=== PATIENT | female | born 1955 | race Caucasian/White ===

== ENCOUNTER 2021-09-19 15:45 | Emergency (ER) | payer BC, MEDICARE ==
[~2021-09-19] VITALS: Ht 172.7 cm; Wt 106.8 kg
[2021-09-19 16:09] VITALS: TEMP 98.4
[2021-09-19 17:12] LABS: BASO % 0.4 % (0.0-2.0); EOS # 0.2 K/mm3 (0.0-0.7); EOS % 3.4 % (0.0-4.0); GRAN # 3.6 K/mm3 (1.4-6.5); HEMATOCRIT 37.9 % (37.0-47.0); HEMOGLOBIN 12.7 g/dl (12.5-16.0); LYMPH # 1.2 K/mm3 (1.2-3.4); LYMPH % 21.9 % (20.0-51.0); MEAN CELL VOLUME 88 fl (80.0-100.0); MEAN CORPUSCULAR HEMOGLOBIN 29 pg (27-31); MEAN CORPUSCULAR HGB CONC 34 g/dl (33.0-37.0); MEAN PLATELET VOLUME 9.9 fl (7.4-10.4); MONO # 0.4 K/mm3 (0.1-0.6); MONO % 6.7 % (1.7-9.3); PLATELET COUNT 249 K/mm3 (130-400); RED BLOOD COUNT 4.33 M/mm3 (4.10-5.30); REDCELL DISTRIBUTION WIDTH-CV 13.1 % (11.5-14.5)
[2021-09-19 17:32] LABS: ALANINE AMINOTRANSFERASE 15 U/L (0-55); ALBUMIN 4.3 gm/dL (3.4-4.8); ALKALINE PHOSPHATASE 87 U/L (40-150); ANION GAP 10 mmol/L (7-16); AST,SGOT 15 U/L (5-34); BILIRUBIN,TOTAL 0.6 mg/dL (0.2-1.2); BLOOD UREA NITROGEN 11 mg/dL (10-20); CALCIUM 9.2 mg/dL (8.4-10.2); CARBON DIOXIDE 23 mmol/L (23-31); CHLORIDE 108 mmol/L (98-107); CREATININE, serum 1.06 mg/dL (0.57-1.11); GLUCOSE 107 mg/dL (70-99); POTASSIUM 3.6 mmol/L (3.5-4.5); SODIUM 141 mmol/L (136-145); TOTAL PROTEIN 7.3 gm/dL (6.2-8.1)
[2021-09-19 18:01] LABS: TROPONIN-I < 0.010 ng/mL (0.00-0.033)
[2021-09-19 21:31] VITALS: BP 139/78; PULSE 72
== END 2021-09-19 21:31 | disposition home or self-care (01) ==
LOC: COL.ER 15:45
PROVIDERS: Emergency Medicine
DX: R07.89 Other chest pain (principal); M54.2 Cervicalgia; G89.29 Other chronic pain; R51.9 Headache, unspecified; R19.7 Diarrhea, unspecified; Z20.822 Contact with and (suspected) exposure to COVID-19; Z28.311 Partially vaccinated for COVID-19; Z82.49 Family history of ischemic heart disease and other diseases of the circulatory system
CPT/HCPCS: J1200; J2765; J7030

== ENCOUNTER 2021-10-15 19:11 | Emergency (ER) | payer BC, MEDICARE ==
[~2021-10-15] VITALS: Ht 172.7 cm; Wt 109.1 kg
[2021-10-15 19:14] VITALS: BP 161/85; TEMP 97.6
[2021-10-15 21:05] VITALS: PULSE 87
== END 2021-10-15 21:10 | disposition home or self-care (01) ==
LOC: COL.ER 19:11
DX: M54.50 Low back pain, unspecified (principal); R51.9 Headache, unspecified; Z98.890 Other specified postprocedural states; Z28.311 Partially vaccinated for COVID-19; W19.XXXA Unspecified fall, initial encounter
CPT/HCPCS: J2270

== ENCOUNTER 2022-02-03 22:41 | Emergency (ER) | payer BC ==
[~2022-02-03] VITALS: Ht 172.7 cm; Wt 113.6 kg
[2022-02-03 23:08] LABS: BASO % 0.2 % (0.0-2.0); EOS # 0.1 K/mm3 (0.0-0.7); EOS % 1.1 % (0.0-4.0); GRAN # 6.8 K/mm3 (1.4-6.5); HEMOGLOBIN 12.5 g/dl (12.5-16.0); LYMPH # 1.4 K/mm3 (1.2-3.4); LYMPH % 15.8 % (20.0-51.0); MEAN CELL VOLUME 88 fl (80.0-100.0); MEAN CORPUSCULAR HEMOGLOBIN 31 pg (27-31); MEAN CORPUSCULAR HGB CONC 35 g/dl (33.0-37.0); MONO # 0.6 K/mm3 (0.1-0.6); MONO % 6.6 % (1.7-9.3); PLATELET COUNT 200 K/mm3 (130-400); RED BLOOD COUNT 4.08 M/mm3 (4.10-5.30); REDCELL DISTRIBUTION WIDTH-CV 13.3 % (11.5-14.5)
[2022-02-03 23:28] LABS: ALBUMIN 3.5 gm/dL (3.4-4.8); BILIRUBIN,TOTAL 0.6 mg/dL (0.2-1.2); CALCIUM 8.8 mg/dL (8.4-10.2); POTASSIUM 3.5 mmol/L (3.5-4.5); TOTAL PROTEIN 6.7 gm/dL (6.2-8.1)
[2022-02-03 23:33] LABS: TROPONIN-I 0.017 ng/mL (0.00-0.033)
[2022-02-04 00:25] VITALS: TEMP 99.5
[2022-02-04 00:28] LABS: COLLECTION METHOD CLEAN CATCH
[2022-02-04 00:48] LABS: MUCOUS Present (NOT PRESENT); URINE BACTERIA Occasional /hpf (NONE SEEN)
[2022-02-04 00:49] LABS: URINE APPEARANCE Clear (CLEAR/HAZY); URINE BLOOD Negative (NEGATIVE); URINE COLOR Yellow (YELLOW); URINE GLUCOSE Negative (NEGATIVE); URINE KETONE Negative (NEGATIVE); URINE NITRATE Negative (NEGATIVE); URINE PROTEIN(semi-quant) Negative (NEGATIVE); URINE UROBILINOGEN 0.2 E.U/dL (0.2-1.0)
[2022-02-04] MEDS ORDERED: OMNICEF 300MG300 MG PO (01:15)
[2022-02-04 01:44] VITALS: BP 115/61; PULSE 97
== END 2022-02-04 02:23 | disposition home or self-care (01) ==
LOC: COL.ER 22:41
PROVIDERS: Nurse Practitioner Primary Care
DX: N39.0 Urinary tract infection, site not specified (principal); Z28.311 Partially vaccinated for COVID-19; Z88.0 Allergy status to penicillin; Z20.822 Contact with and (suspected) exposure to COVID-19
CPT/HCPCS: J0696; J7030

== ENCOUNTER 2022-05-07 16:38 | Inpatient (IN) | payer BC ==
[~2022-05-07] VITALS: Ht 172.7 cm; Wt 111.4 kg
[~2022-05-07 16:38] MED LIST: CEFTIN500 MG PO; NORCO 325 MG-51 TAB PO; OMNICEF 300MG300 MG PO; ZITHROMAX Z PA250 MG PO
[2022-05-07 17:22] LABS: BASO % 0.1 % (0.0-2.0); EOS # 0.1 K/mm3 (0.0-0.7); EOS % 1.7 % (0.0-4.0); GRAN # 6.3 K/mm3 (1.4-6.5); GRAN % 75.9 % (42.2-75.2); HEMOGLOBIN 11.9 g/dl (12.5-16.0); LYMPH # 1.2 K/mm3 (1.2-3.4); LYMPH % 14.5 % (20.0-51.0); MEAN CELL VOLUME 88 fl (80.0-100.0); MEAN CORPUSCULAR HEMOGLOBIN 30 pg (27-31); MEAN CORPUSCULAR HGB CONC 35 g/dl (33.0-37.0); MEAN PLATELET VOLUME 10.4 fl (7.4-10.4); MONO # 0.6 K/mm3 (0.1-0.6); MONO % 7.4 % (1.7-9.3); PLATELET COUNT 236 K/mm3 (130-400); RED BLOOD COUNT 3.93 M/mm3 (4.10-5.30); REDCELL DISTRIBUTION WIDTH-CV 13.3 % (11.5-14.5)
[2022-05-07 17:24] LABS: HEMATOCRIT 34.5 % (37.0-47.0)
[2022-05-07 17:29] LABS: ALANINE AMINOTRANSFERASE 22 U/L (0-55); ALBUMIN 3.8 gm/dL (3.4-4.8); ALKALINE PHOSPHATASE 76 U/L (40-150); ANION GAP 11 mmol/L (7-16); AST,SGOT 27 U/L (5-34); BILIRUBIN,TOTAL 0.8 mg/dL (0.2-1.2); BLOOD UREA NITROGEN 11 mg/dL (10-20); CALCIUM 9.5 mg/dL (8.4-10.2); CARBON DIOXIDE 26 mmol/L (23-31); CHLORIDE 103 mmol/L (98-107); CREATINE KINASE 408 U/L (29-168); CREATININE, serum 0.82 mg/dL (0.57-1.11); GLUCOSE 114 mg/dL (70-99); POTASSIUM 3.6 mmol/L (3.5-4.5); SODIUM 140 mmol/L (136-145); TOTAL PROTEIN 6.9 gm/dL (6.2-8.1)
[2022-05-07 17:30] LABS: ALCOHOL(ethanol),MEDICAL < 10 mg/dL (0-10)
[2022-05-07 17:42] LABS: TROPONIN-I < 0.010 ng/mL (0.00-0.033)
[2022-05-07] MEDS ORDERED: XANAX 0.5MG0.5 MG PO (22:14)
[2022-05-07] MEDS ORDERED: AMBIEN 10MG10 MG PO (22:14)
[2022-05-07] MEDS ORDERED: TRIAMC 0.1 454 TOP (22:15)
[2022-05-07] MEDS ORDERED: HYGROTON 2525 MG/TAB PO (22:15)
[2022-05-07] MEDS ORDERED: PROTONIX 40MG T40 MG PO (22:15)
[2022-05-07] MEDS ORDERED: BUPRENORPHINE HY2 MG SL (22:15)
[2022-05-07] MEDS ORDERED: BRINTELLIX5 PO (22:15)
[2022-05-07] MEDS ORDERED: LASIX 20MG TABL20 MG PO (22:15)
[2022-05-07 23:05] VITALS: BP 120/61; PULSE 82; TEMP 97.8
--- NOTE | 2022-05-07 23:05 | NUR ---
pt admitted to room 342 per WC from ED, accompanied by son and meter/relay technician. pt able to transfer self to bed with help moving legs onto bed from staff. alert and oriented x4, speech slightly slurred, pt is drowsy, but reports pain "all over" when asked specifically where she has pain, she states chronic neck, low back, rt hip and feet, although, since the fall, her rt hip pain has increased. IV to lt hand INT, assessment and intake questions completed, med req done, notified Екатерина of pt's arrival, entering orders at this time. pt has slight discoloration to left forehead where she struck her head during the fall. neuro checks q4hrs
[2022-05-07] MEDS ORDERED: LIDODERM 5% PATC1 EA TP (23:19)
[2022-05-08] VITALS (9 sets, daily range): BP systolic 83–117; BP diastolic 44–88; PULSE 67–83; TEMP 97.4–98.3
[2022-05-08 07:27] LABS: BASO % 0.5 % (0.0-2.0); EOS # 0.3 K/mm3 (0.0-0.7); EOS % 4.5 % (0.0-4.0); GRAN # 3.4 K/mm3 (1.4-6.5); GRAN % 57.4 % (42.2-75.2); HEMOGLOBIN 10.7 g/dl (12.5-16.0); LYMPH # 1.7 K/mm3 (1.2-3.4); MEAN CELL VOLUME 89 fl (80.0-100.0); MEAN CORPUSCULAR HEMOGLOBIN 30 pg (27-31); MEAN CORPUSCULAR HGB CONC 34 g/dl (33.0-37.0); MEAN PLATELET VOLUME 10.8 fl (7.4-10.4); MONO # 0.5 K/mm3 (0.1-0.6); MONO % 8.3 % (1.7-9.3); PLATELET COUNT 192 K/mm3 (130-400); RED BLOOD COUNT 3.56 M/mm3 (4.10-5.30); REDCELL DISTRIBUTION WIDTH-CV 13.3 % (11.5-14.5)
[2022-05-08 07:38] LABS: HEMATOCRIT 31.6 % (37.0-47.0)
[2022-05-08 07:54] LABS: CALCIUM 9.1 mg/dL (8.4-10.2); CREATININE, serum 0.87 mg/dL (0.57-1.11); POTASSIUM 3.7 mmol/L (3.5-4.5)
--- NOTE | 2022-05-08 08:00 | NUR ---
Assessment complete. A&Ox3. Rating pain 8/10 to lower back/extremities. Unable to medicate due to low blood pressures. Very slurred speech and slow to respond and dosing off during assessment. Noted have a rash to right valerio area and bruising to forehead. INT to left wrist flushes without difficulty. Plan of care discussed for this shift to include meds/fluid bolus/VS/calling for questions/concerns. Verbalizes understanding. Call light in reach. Will monitor.
--- NOTE | 2022-05-08 08:07 | NUR ---
Dr Parra notified of blood pressure of 80s/50s. New orders received and initiated.
--- NOTE | 2022-05-08 09:33 | NUR ---
Blood pressure continues to be low-80/40s. Has received 250ml bolus. Dr Parra aware and another 250ml bolus initiated. Will re-assess when complete
--- NOTE | 2022-05-08 10:45 | NUR ---
SW met with pt to complete intake. Pt reports living alone in a apartment. Pt reports next of kin is her son, Justino @ [phone]. Pt is independent on all ADls and does not use any DME. PCP is Beto Burns and gets medications from [facility]. Pt reports she would like rehab. DC: Home w/fam vs Rehab SW to fax referrals
--- NOTE | 2022-05-08 12:22 | NUR ---
Channel Installer rounds: No Channel Installer visit attempted because Patient had a visitor in room.
--- NOTE | 2022-05-08 13:45 | NUR ---
Patient requesting pain meds from PCT. Blood pressure WNL. This nurse to room and patient is resting with eyes closed. Awakens with verbal stimuli. States she needs the IV pain meds. Discussed starting with oxycodone and patient states it doesnt work and she wants the IV meds. Explained per order we would be starting with oxycodone and if pain is still persistent after an hour we could advance to IV medication if blood pressure is okay. Verbalizes understanding but states several times "see you in an hour" while giggling.
--- NOTE | 2022-05-08 15:55 | NUR ---
Neuro/Ortho consults called.
--- NOTE | 2022-05-08 17:41 | NUR ---
BECKY FAXED referrals to [facility] 05/08/ @ 5:41 pm @lucas.
[2022-05-09 03:59] VITALS: BP 119/56; PULSE 70; TEMP 97.8
--- NOTE | 2022-05-09 06:15 | NUR ---
PT has been ambulating to restroom with SBA, has refused oxycodone and only wants the IV morphine q4 for pain, scheduled tylenol and motrin given unless pt sleeping. IVF infusing @75cc/hr per PIV. good po intake, potassium replacement given last evening. would like something for itching and ointment for skin rash, will pass on in report. urine specimen sent to lab chet
[2022-05-09 06:44] LABS: BASO % 0.4 % (0.0-2.0); EOS # 0.3 K/mm3 (0.0-0.7); EOS % 5.6 % (0.0-4.0); GRAN # 2.9 K/mm3 (1.4-6.5); GRAN % 54.6 % (42.2-75.2); HEMOGLOBIN 10.8 g/dl (12.5-16.0); LYMPH # 1.6 K/mm3 (1.2-3.4); LYMPH % 30.1 % (20.0-51.0); MEAN CELL VOLUME 90 fl (80.0-100.0); MEAN CORPUSCULAR HEMOGLOBIN 31 pg (27-31); MEAN CORPUSCULAR HGB CONC 34 g/dl (33.0-37.0); MEAN PLATELET VOLUME 11.2 fl (7.4-10.4); MONO # 0.5 K/mm3 (0.1-0.6); MONO % 8.9 % (1.7-9.3); PLATELET COUNT 224 K/mm3 (130-400); RED BLOOD COUNT 3.54 M/mm3 (4.10-5.30); REDCELL DISTRIBUTION WIDTH-CV 13.2 % (11.5-14.5)
[2022-05-09 06:47] LABS: HEMATOCRIT 31.9 % (37.0-47.0)
[2022-05-09 07:02] LABS: TRICYCLIC ANTIDEPRESS URINE NEGATIVE
[2022-05-09 07:04] LABS: CREATININE, serum 0.89 mg/dL (0.57-1.11); POTASSIUM 3.9 mmol/L (3.5-4.5)
[2022-05-09 07:23] VITALS: BP 103/58; PULSE 69; TEMP 98
[2022-05-09 07:58] LABS: THYROID STIMULATING HORMONE 2.469 uIU/mL (0.350-4.940)
--- NOTE | 2022-05-09 08:00 | NUR ---
PATIENT GETTING ECHO AT BEDSIDE AND IS CRYING OUT IN PAIN DUE TO V.DUPLEX. PATIENT IS HYPERSESITIVE TO ANY PRESSURE/PAIN AND HAS A LONG HX OF CHRONIC PAIN AND NARCOTIC USE. PATIENT'S UA WAS POSITIVE FOR SEVERAL OPIODS. ORIENTED BUT ALSO DROWSY. NOTED SOFT PRESSURES OF 103/58, ALL OTHER VSS. PATIENT IS VERY VOCAL AND IS ASKING FOR PAIN MEDS. GAVE PRN ROXICODONE AND PRN IV MORPHINE. PATIENT ALSO RECEIVED SCHEDULED MOTRIN AND LIDO PATCH, SEE MAR. NO C/O N/V. IV FLUIDS INFUSING VIA PUMP INTO LEFT WRIST IV. HEAD TO TOE ASSESSMENT COMPLETE. VASCULAR NURSE STILL AT BEDSIDE. CALL LIGHT IN REACH.
[2022-05-09 11:48] VITALS: BP 120/59; PULSE 50; TEMP 97.8
[2022-05-09 16:37] VITALS: BP 101/80; PULSE 72; TEMP 97.9
[2022-05-09 19:10] VITALS: BP 121/65; PULSE 71; TEMP 97.5
--- NOTE | 2022-05-09 21:59 | NUR ---
PT ASKING FOR PAIN MEDS FOR HIPS AND BACK PAIN. MORPHINE 2MG IVP AND OXYCODONE 5MG PO GIVEN WITH HS MEDS. HAS IVF TO LEFT HAND INFUSING WITHOUT PROBLEM. IS ALERT AND ORIENTED X4. HAS SMALL BRUISE TO LEFT FOREHEAD FROM FALL AT HOME. HAS RASH TO RLE SINCE ADMISSION TO HOSPITAL. VOIDING WITHOUT DIFFICULTY.
[2022-05-09 23:52] VITALS: BP 116/57; PULSE 68; TEMP 97.5
--- NOTE | 2022-05-10 01:48 | NUR ---
MEDICATED WITH SCHEDULED ES TYLENOL, ALSO PRN OXYCODONE 5MG PO AND MORPHINE 2MG IVP FOR PAIN IN BACK AND LEGS.
[2022-05-10 03:51] VITALS: BP 112/57; PULSE 67; TEMP 97.7
--- NOTE | 2022-05-10 06:06 | NUR ---
PT AWAKE, AMBULATES IN BATHROOM WITH SBA AND WALKER, GAIT STEADY. BACK TO BED. REPORTING PAIN TO HIPS/LEGS AND BACK. BILATERAL LOWER LEG SWELLING PERSISTS. MEDICATED WITH SCHEDULED AM MEDS INCLUDING MORPHINE 2MG IVP AND OXYCODONE 5MG PO.
[2022-05-10 06:32] LABS: BASO % 0.4 % (0.0-2.0); EOS # 0.2 K/mm3 (0.0-0.7); EOS % 4.2 % (0.0-4.0); GRAN # 2.6 K/mm3 (1.4-6.5); GRAN % 55.8 % (42.2-75.2); HEMOGLOBIN 10.8 g/dl (12.5-16.0); LYMPH # 1.5 K/mm3 (1.2-3.4); LYMPH % 32.2 % (20.0-51.0); MEAN CELL VOLUME 89 fl (80.0-100.0); MEAN CORPUSCULAR HEMOGLOBIN 30 pg (27-31); MEAN CORPUSCULAR HGB CONC 34 g/dl (33.0-37.0); MEAN PLATELET VOLUME 10.8 fl (7.4-10.4); MONO # 0.3 K/mm3 (0.1-0.6); MONO % 7.2 % (1.7-9.3); PLATELET COUNT 225 K/mm3 (130-400); RED BLOOD COUNT 3.58 M/mm3 (4.10-5.30); REDCELL DISTRIBUTION WIDTH-CV 13.2 % (11.5-14.5)
[2022-05-10 06:37] LABS: HEMATOCRIT 31.9 % (37.0-47.0)
[2022-05-10 06:45] LABS: CALCIUM 8.6 mg/dL (8.4-10.2); CREATININE, serum 0.91 mg/dL (0.57-1.11); POTASSIUM 3.7 mmol/L (3.5-4.5)
[2022-05-10 07:41] VITALS: BP 120/58; PULSE 71; TEMP 97.6
[2022-05-10 12:06] VITALS: BP 105/58; PULSE 70; TEMP 98.1
[2022-05-10 13:38] LABS: LYME DISEASE ANTIBODIES Negative (Negative)
--- NOTE | 2022-05-10 14:26 | NUR ---
PT worked with the patient and recommend home with family vs rehab. She walked 200 ft. The patient has [facility]. SW consulted IPR. Christy, IPR Director, reports that the patient is too functional. SW met with the patient to discuss the above and alternate options such as home with home health or outpatient PT. The patient states that she already has a referral to do outpatient PT and had planned on doing this at [facility]. She states that she is comfortable returning home and will be going to stay with her son, Justino, at the end of the month. Her son is a captain airline pilot on [email or web address]. She would like to continue with outpatient PT at [facility]. She states that her son is currently flying and she is unable to get ahold of him. He has her car. She shares that she does not have a walker and would be interested in getting one. She is agreeable with getting one from [facility]. BECKY contacted and faxed the FWW order to Luis at [facility]. Awaiting delivery of walker. BECYK contacted [facility] and scheduled the patient a PT appointment on 05/12 at 0800. BECKY informed the ammunition components inspector of the appointment. *Discharge plan: home with outpatient PT*
[2022-05-10 15:28] VITALS: BP 132/68; PULSE 77; TEMP 97.6
[2022-05-10 20:02] VITALS: BP 121/61; PULSE 85; TEMP 97.9
--- NOTE | 2022-05-10 22:45 | NUR ---
PATIENT A&0. COMPLAINTS OF 5 OF 10 PAIN. PAIN MEDS ADMINISTERED. C/O ITCHING, BENADRYL REQUESTED AND ADMINISTERED. PATIENT SHOWERED AND BED LINENS CHANGED. NO REQUESTS OR OTHER CONCERNS AT THIS TIME.
[2022-05-10 23:42] VITALS: BP 141/74; PULSE 77; TEMP 97.9
--- NOTE | 2022-05-11 00:40 | NUR ---
RECEIVED REPORT FROM RNPERCY. IV FLUIDS INFUSING WITH NO PROBLEMS.
[2022-05-11 04:10] VITALS: BP 110/56; PULSE 64; TEMP 98.6
--- NOTE | 2022-05-11 06:06 | NUR ---
REPORTS SHE CAN HEAR HERSELF "WHEEZING....WHISTLING" WITH BREATHING BUT DENIES SHORTNESS OF AIR, OXYGEN SAT ON ROOM AIR AT 98 PERCENT. AUSCULTATED ALL LUNG FIELD ANT AND POST CLEAR THROUGH OUT. DENIES FEELING SPUTUM IN THROAT. REPORTS SORE THROAT DUE TO DRY FEELING THROAT THAT RESOLVED AFTER DRINKING MORE WATER WITH SLIGHT FEELING OF THROAT DRYNESS.
--- NOTE | 2022-05-11 07:18 | NUR ---
CHANGE OF SHIFT REPORT GIVEN TO DAY SHIFT RNXIOMARA.
--- NOTE | 2022-05-11 08:00 | NUR ---
PATIENT IS A&O AND SITTING UP IN BEDSIDE CHAIR. HOSPITALIST TEAM ALREADY ROUNDED THIS AM WITHOUT NURSING. PATIENT EXPRESSING FRUSTERATIONS WITH NOT KNOWING WHAT THE CARE HOME PLAN IS. PATIENT SAID HOSPITALIST PROVIDER MENTIONED INJ FOR PAIN MANAGEMENT WHICH PATIENT WAS NOT INTERESTED IN SEEING A PAIN SPECIALIST FOR INJ. PATIENT ALSO REFUSED HEAD CT YESTERDAY SHE DOES NOT FEEL THAT HER FALL WAS RELATED TO ANYTHING BUT WEAKNESS AND PAIN IN HER RIGHT HIP AND BACK, WHICH ARE CHRONIC FOR HER. PATIENT GIVEN PRN ROXICODONE AND IV MORPHINE WITH AM MEDS. LIDO PATCH APPLIED TO RIGHT HIP PER PATIENT. PATIENT'S RASH TO RIGHT MERLOS APPEARS TO BE BETER TODAY, LESS RED AND LESS SWOLLEN. 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 NOTED BLE EDEMA WITH +1 PEDAL PULSES. IV FLUIDS INFUSING INTO LEFT WRIST. NO C/O N/V. HEAD TO TOE ASSESSMENT COMPLETE. VSS ON TELE. HOSPITALIST TEAM WOULD LIKE TO GET AN MRI OF RIGHT HIP TODAY HOWEVER OUR MRI MACHINE IS DOWN AGAIN. MEDICAL TEAM TRYING TO MAKE OTHER ARRANGMENTS TO GET AN MRI DONE TODAY.
[2022-05-11 08:09] VITALS: BP 107/52; PULSE 70; TEMP 98
--- NOTE | 2022-05-11 11:10 | NUR ---
TALKED WITH NURSE FROM [facility] FOR MRI TODAY AT 1530. DATABASE DESIGN ANALYST COORDINATING EMS TRANSPORTATION.
[2022-05-11 12:00] VITALS: BP 113/57; PULSE 73; TEMP 97.8
--- NOTE | 2022-05-11 15:15 | NUR ---
PATIENT REQUESTING PAIN MEDS BEFORE TRANSFER TO [facility] FOR MRI. GAVE PRN IV MORPHINE AND PO ROXICODONE. ALSO GAVE SCHEDULED TYLENOL & MOTRIN. DC'D TELE. REMOVED EYE GLASSES. NO JEWLERY. EMS NOW AT BEDSIDE. PUT DRESSED IN WARM BLANKET/JACKET. PATIENT OFF FLOOR.
--- NOTE | 2022-05-11 16:30 | NUR ---
PATIENT NOW BACK IN ROOM FROM MRI. TELE BACK ON. PATIENT RESTING UP IN BED.
[2022-05-11] MEDS ORDERED: NEURONTIN100 MG/CAP PO (16:50)
[2022-05-11] MEDS ORDERED: FOLIC ACID 11 MG/TA1 PO (16:50)
[2022-05-11] MEDS ORDERED: NORCO 325 MG-51 TAB PO (16:51)
--- NOTE | 2022-05-11 18:00 | NUR ---
PATIENT HAS SPECIFIC QUESTIONS ABOUT HER CARE PLAN AND WHERE SHE GOES FROM HERE. PATIENT WANTS TO TALK TO PROVIDER. CALLED WHO SAID HE WOULD COME TALK TO THE PATIENT. PATIENT CURRENTLY SITTING UP IN BEDSIDE CHAIR WITH JESUS AMATO
[2022-05-11 19:36] VITALS: BP 130/67; PULSE 71; TEMP 98.2
[2022-05-12 00:07] VITALS: BP 128/55; PULSE 71; TEMP 98.4
[2022-05-12 04:20] VITALS: BP 110/64; PULSE 61; TEMP 98
[2022-05-12 06:25] LABS: BASO % 0.5 % (0.0-2.0); EOS # 0.1 K/mm3 (0.0-0.7); EOS % 3.2 % (0.0-4.0); GRAN # 2.7 K/mm3 (1.4-6.5); GRAN % 61.4 % (42.2-75.2); HEMOGLOBIN 10.6 g/dl (12.5-16.0); LYMPH # 1.2 K/mm3 (1.2-3.4); LYMPH % 27.1 % (20.0-51.0); MEAN CELL VOLUME 89 fl (80.0-100.0); MEAN CORPUSCULAR HEMOGLOBIN 30 pg (27-31); MEAN CORPUSCULAR HGB CONC 34 g/dl (33.0-37.0); MEAN PLATELET VOLUME 10.3 fl (7.4-10.4); MONO # 0.3 K/mm3 (0.1-0.6); MONO % 7.6 % (1.7-9.3); PLATELET COUNT 221 K/mm3 (130-400); REDCELL DISTRIBUTION WIDTH-CV 13.5 % (11.5-14.5)
[2022-05-12 06:26] LABS: HEMATOCRIT 31.1 % (37.0-47.0)
[2022-05-12 06:31] LABS: CALCIUM 8.8 mg/dL (8.4-10.2); CREATININE, serum 0.86 mg/dL (0.57-1.11); POTASSIUM 3.6 mmol/L (3.5-4.5)
--- NOTE | 2022-05-12 07:24 | NUR ---
Shift report received from Jignesh Florian RN.
[2022-05-12 08:00] VITALS: BP 118/67; PULSE 64; TEMP 97.5
[2022-05-12 09:07] LABS: A/G RATIO (PEP) 1.06 (()); BETA GLOBULINS (PEP) 0.8 g/dL (0.7-1.2)
[2022-05-12 09:44] LABS: C-REACTIVE PROTEIN 0.51 mg/dL (0.00-0.50)
--- NOTE | 2022-05-12 10:23 | NUR ---
EBCKY attended clinical rounds. The hospitalist is ready to discharge the patient. BECKY followed up with the patient. The patient inquired why she did not qualify for IPR again. Per PT's note, the patient is now walking 700 ft with them. BECKY informed her how [facility] feels that she is too functional. The patient verbalized understanding. She states that she will not be moving in with her son until a month 1/2 from now. She is interested in in home services. BECKY discussed doing home health instead of outpatient therapy then. The patient is interested in this. BECKY provided her with [employer]'s list of home health agencies that serve [place]. The patient did not have a preference and she was agreeable with getting set up with [facility]. The patient shares her frustrations with the lack of healthcare and mental health in the area. She states that she is from [place], where there was a lot of resources and healthcare. BECKY provided support. BECKY provided the patient with a list of local mental health clinics and [facility]'s Resource Guide. BECKY contacted and faxed a referral to Phillip at [facility]. Phillip reports that they are able to accept the patient. BECKY updated [facility]. The patient is to discharge back home today, 05/12, with home health services for usp/PT/OT from [facility]. BECKY notified and faxed orders to Phillip at [facility]. No additional needs at this time.
--- NOTE | 2022-05-12 10:33 | NUR ---
Patent resting in bed alert and oriented x 4 . Patient has a small bruise at the left eyebrow. Patent c/o pain at the right hip and rated pain level 8/10. See process intervention for notes.
[2022-05-12 12:00] VITALS: BP 123/63; PULSE 72; TEMP 98.3
--- NOTE | 2022-05-12 16:27 | NUR ---
Discharge instruction given , patient verbalized understanding. Patient has no other questions. INT d/c.
== END 2022-05-12 17:00 | disposition home health service (06) | DRG 93 ==
LOC: COL.ER 16:38 → SURG 20:42 → EDBEDREQSVC 22:13 → SURG 05-10 09:15
PROVIDERS: Emergency Medicine; Internal Medicine; Physician Assistant; Psychiatry & Neurology Neurology; Student in an Organized Health Care Education/Training Program; ADMIT Internal Medicine Sleep Medicine
DX: G92.8 Other toxic encephalopathy (principal); S00.81XA Abrasion of other part of head, initial encounter; T40.605A Adverse effect of unspecified narcotics, initial encounter; M16.11 Unilateral primary osteoarthritis, right hip; G62.9 Polyneuropathy, unspecified; F41.0 Panic disorder [episodic paroxysmal anxiety]; K21.9 Gastro-esophageal reflux disease without esophagitis; G89.29 Other chronic pain; M54.2 Cervicalgia; R47.81 Slurred speech; R21 Rash and other nonspecific skin eruption; F41.9 Anxiety disorder, unspecified; G47.00 Insomnia, unspecified; W18.30XA Fall on same level, unspecified, initial encounter; Y92.009 Unspecified place in unspecified non-institutional (private) residence as the place of occurrence of the external cause; Y93.9 Activity, unspecified; Z96.653 Presence of artificial knee joint, bilateral; Z96.642 Presence of left artificial hip joint; Z90.49 Acquired absence of other specified parts of digestive tract; Z91.81 History of falling; Z88.0 Allergy status to penicillin
CPT/HCPCS: OP; G0378; J1170; J1650; J2270; J7030; J7040

== ENCOUNTER 2022-06-07 20:34 | Observation (INO) | payer BC ==
[~2022-06-07] VITALS: Ht 172.7 cm; Wt 117.4 kg
[~2022-06-07 20:34] MED LIST changes: +AMBIEN 10MG10 MG PO; +BRINTELLIX5 PO; +BUPRENORPHINE HY2 MG SL; +FOLIC ACID 11 MG/TA1 PO; +HYGROTON 2525 MG/TAB PO; +LASIX 20MG TABL20 MG PO; +LIDODERM 5% PATC1 EA TP; +NEURONTIN100 MG/CAP PO; +PROTONIX 40MG T40 MG PO; +TRIAMC 0.1 454 TOP; +XANAX 0.5MG0.5 MG PO
[2022-06-07 21:41] LABS: BASO % 0.2 % (0.0-2.0); EOS # 0.1 K/mm3 (0.0-0.7); EOS % 1.7 % (0.0-4.0); GRAN % 63.6 % (42.2-75.2); HEMATOCRIT 38.2 % (37.0-47.0); HEMOGLOBIN 12.5 g/dl (12.5-16.0); LYMPH # 1.6 K/mm3 (1.2-3.4); LYMPH % 25.4 % (20.0-51.0); MEAN CELL VOLUME 92 fl (80.0-100.0); MEAN CORPUSCULAR HEMOGLOBIN 30 pg (27-31); MEAN CORPUSCULAR HGB CONC 33 g/dl (33.0-37.0); MEAN PLATELET VOLUME 10.5 fl (7.4-10.4); MONO # 0.6 K/mm3 (0.1-0.6); MONO % 8.9 % (1.7-9.3); PLATELET COUNT 222 K/mm3 (130-400); RED BLOOD COUNT 4.17 M/mm3 (4.10-5.30); REDCELL DISTRIBUTION WIDTH-CV 13.1 % (11.5-14.5)
[2022-06-07 22:00] LABS: ALANINE AMINOTRANSFERASE 24 U/L (0-55); ALBUMIN 4.1 gm/dL (3.4-4.8); ALKALINE PHOSPHATASE 73 U/L (40-150); ANION GAP 12 mmol/L (7-16); AST,SGOT 31 U/L (5-34); BILIRUBIN,TOTAL 0.9 mg/dL (0.2-1.2); BLOOD UREA NITROGEN 8 mg/dL (10-20); CALCIUM 9.5 mg/dL (8.4-10.2); CARBON DIOXIDE 24 mmol/L (23-31); CHLORIDE 106 mmol/L (98-107); CREATININE, serum 0.91 mg/dL (0.57-1.11); GLUCOSE 94 mg/dL (70-99); POTASSIUM 3.8 mmol/L (3.5-4.5); SODIUM 142 mmol/L (136-145); TOTAL PROTEIN 7.4 gm/dL (6.2-8.1)
[2022-06-07 22:01] LABS: ACETAMINOPHEN < 1.0 ug/mL (10-30); ALCOHOL(ethanol),MEDICAL < 10 mg/dL (0-10); SALICYLATE < 5.0 mg/dL (15.0-30.0)
[2022-06-07 22:59] LABS: COLLECTION METHOD CLEAN CATCH
[2022-06-07 23:06] LABS: MUCOUS Present (NOT PRESENT); URINE BACTERIA None Seen /hpf (NONE SEEN)
[2022-06-07 23:07] LABS: URINE APPEARANCE Hazy (CLEAR/HAZY); URINE BLOOD TRACE-INTACT (NEGATIVE); URINE COLOR Yellow (YELLOW); URINE GLUCOSE Negative (NEGATIVE); URINE KETONE TRACE (NEGATIVE); URINE NITRATE Negative (NEGATIVE); URINE PROTEIN(semi-quant) 1+ (NEGATIVE)
[2022-06-07 23:18] LABS: TRICYCLIC ANTIDEPRESS URINE NEGATIVE
[2022-06-07] MEDS ORDERED: HYGROTON 2525 MG/TAB (23:40)
[2022-06-07] MEDS ORDERED: BUPRENORPHINE HY2 MG SL (23:41)
[2022-06-07] MEDS ORDERED: ZOFRAN 4MG T4 MG/TAB PO (23:42)
--- NOTE | 2022-06-08 01:04 | NUR ---
0102 PT ARRIVED TO ROOM 356, SON AT BEDSIDE WITH PATIENT
[2022-06-08 01:08] VITALS: BP 114/60; PULSE 78; TEMP 98.2
[2022-06-08 03:31] VITALS: BP 104/61; PULSE 67; TEMP 97.6
[2022-06-08 07:04] VITALS: BP 119/60; PULSE 63; TEMP 97.6
[2022-06-08 07:19] LABS: BASO % 0.2 % (0.0-2.0); EOS # 0.2 K/mm3 (0.0-0.7); EOS % 4.3 % (0.0-4.0); GRAN # 1.8 K/mm3 (1.4-6.5); HEMOGLOBIN 11.3 g/dl (12.5-16.0); LYMPH # 1.6 K/mm3 (1.2-3.4); LYMPH % 39.3 % (20.0-51.0); MEAN CELL VOLUME 90 fl (80.0-100.0); MEAN CORPUSCULAR HEMOGLOBIN 30 pg (27-31); MEAN CORPUSCULAR HGB CONC 33 g/dl (33.0-37.0); MEAN PLATELET VOLUME 10.8 fl (7.4-10.4); MONO # 0.5 K/mm3 (0.1-0.6); PLATELET COUNT 177 K/mm3 (130-400); RED BLOOD COUNT 3.81 M/mm3 (4.10-5.30); REDCELL DISTRIBUTION WIDTH-CV 13.2 % (11.5-14.5)
[2022-06-08 07:24] LABS: HEMATOCRIT 34.2 % (37.0-47.0)
[2022-06-08 07:33] LABS: CALCIUM 8.8 mg/dL (8.4-10.2); CREATININE, serum 0.83 mg/dL (0.57-1.11); POTASSIUM 3.5 mmol/L (3.5-4.5)
--- NOTE | 2022-06-08 10:16 | NUR ---
PT RESTING IN BED, DROWSY BUT EASILY AROUSABLE AND ORIENTED. . COMPLAINTS OF ONGOING PAIN IN BACK AND HIPS, UNRELIEVED BY CURRENT MEDICATION REGIMEN.
[2022-06-08 11:41] VITALS: BP 99/49; PULSE 68; TEMP 97.5
--- NOTE | 2022-06-08 14:27 | NUR ---
PT OFF THE FLOOR TO MRI
--- NOTE | 2022-06-08 15:08 | NUR ---
PT BACK TO THE FLOOR FROM MRI. IN BED IN LOWEST POSITION WITH BED ALARM ON.
[2022-06-08 15:13] VITALS: BP 96/56; PULSE 63; TEMP 97.6
--- NOTE | 2022-06-08 15:30 | NUR ---
SW met with patient to complete intake. Patient reports that she currently lives at home alone but is planning on moving in with her son Nikhil ([phone]). Patient reports to being independent with her ADL's and utilizes a cane and a walker to assist with ambulation. She has no home oxygen needs. PCP is and she utilizes [facility] for prescriptions. Patient does not have a DPOA-HC established and does not wish to create one at this time. SW spoke with patient about needing HH returning home. Patient reports that she has had home health in the past when she lives in [place]. [email or web address] list of home health agencies is provided to the patient. Discharge plan: Home with HH
[2022-06-08 20:11] VITALS: BP 102/77; PULSE 69; TEMP 97.9
[2022-06-09 00:19] VITALS: BP 119/64; PULSE 67; TEMP 97.9
--- NOTE | 2022-06-09 00:44 | NUR ---
PATIENT C/O OF 910 PAIN. PATIENT WAS OFFERED SCHEDULED NEUROTIN AND PRN TYLENOL AND MELATONIN. PATIENT STATED "THOSE MEDICATIONS DONT WORK FOR ME" "ILL BE OKAY IF I CAN JUST GET MY AMBIEN". PATIENT EDUCATED THAT PROVIDERS DONT WANT HER TO HAVE ANY BENZOS OR NARCOTICS DUE TO HER AMS ON ARRIVAL. SILK SOAKER ANI NOTIFED THAT PATIENT IS REQUESTING AMBIEN. SILK SOAKER STATED THAT SHE COULD NOT HAVE ANY AMBIEN. PATIENT NOTIFIED AND STATED THAT IT IS "LUDACRIS" THAT WE HAVE ALL THESE MEDICATIONS IN THIS FACILITY AND SHE CANT HAVE ANYTHING FOR SLEEP. THIS NURSE OFFERED TO GIVE HER TYLENOL OR MELATONIN FOR SLEEP ONCE AGAIN. PATIENT REFUSED MEDICATION.
[2022-06-09 04:22] VITALS: BP 113/68; PULSE 66; TEMP 97.8
[2022-06-09 07:06] VITALS: BP 110/62; PULSE 69; TEMP 97.9
--- NOTE | 2022-06-09 10:15 | NUR ---
Assessment complete. Reports chronic hip pain 11/21. Discharge orders rec'd.
--- NOTE | 2022-06-09 11:20 | NUR ---
Discharge instructions reviewed with patient and son. Pt verbalizes understanding. INT d/c'd to RH- cath tip intact. Tele d/c'd. Pt escorted by [facility] staff to private vehicle via w/c with son and discharged home.
--- NOTE | 2022-06-09 11:20 | NUR ---
[employer] Bi Architect attended clinical rounds with the team and patient is ready for discharge home today. Patient is unhappy with her primary care provider and would like to switch. BECKY provided list of local primary care providers. BECKY also discussed Home Health and patient stated she was set up with [facility] during her last hospital stay, but never heard from them. Patient would like to use them if it can be set up this time around. BECKY offered to make patient an appointment with a new PCP, however patient stated she wanted to review the list and follow up on her own. BECKY contacted Phillip at [facility] and faxed referral with discharge orders. Phillip advised they did receive a referral previously, but she could never get a hold of patient. Phillip advised she even called [facility] and had no luck reaching patient. Phillip will accept patient. BECKY provided phone number that patient provided as her best point of contact. . BECKY followed up with patient again to discuss PCP, however she still just wants to review the list and follow up independently. Patient advised her son will be here soon to bring her home. Discharge Plan: Home with [facility]
== END 2022-06-09 11:20 | disposition home or self-care (01) ==
LOC: COL.ER 20:34 → MEDICAL 23:07
PROVIDERS: Family Medicine; Student in an Organized Health Care Education/Training Program; ADMIT Student in an Organized Health Care Education/Training Program
DX: G93.40 Encephalopathy, unspecified (principal); G62.9 Polyneuropathy, unspecified; G89.29 Other chronic pain; M16.11 Unilateral primary osteoarthritis, right hip; R60.9 Edema, unspecified; F41.9 Anxiety disorder, unspecified; F41.0 Panic disorder [episodic paroxysmal anxiety]; G47.00 Insomnia, unspecified; K21.9 Gastro-esophageal reflux disease without esophagitis; B19.20 Unspecified viral hepatitis C without hepatic coma; Z28.310 Unvaccinated for COVID-19; Z28.9 Immunization not carried out for unspecified reason; R21 Rash and other nonspecific skin eruption; L30.9 Dermatitis, unspecified; Z79.899 Other long term (current) drug therapy
CPT/HCPCS: A9575; G0378; J1650; J2060; J7030

== ENCOUNTER → 2022-06-27 | Outpatient (CLI) | payer MEDICARE ==
[~2022-06-27] MED LIST changes: +HYGROTON 2525 MG/TAB; +ZOFRAN 4MG T4 MG/TAB PO
== END ==
LOC: COL.RAD 08:00
DX: M25.551 Pain in right hip (principal)
CPT/HCPCS: J3301; Q9967

== ENCOUNTER 2023-11-12 19:37 | Emergency (ER) | payer MEDICARE, OTHER ==
[~2023-11-12] VITALS: Ht 172.7 cm; Wt 109.5 kg
[~2023-11-12 19:37] MED LIST changes: +CEPHALEXIN500 M1 PO; +FLEXERIL 1010 MG/TAB PO; +JARDIANCE10; +KAPSPARGO SPRIN25 MG PO; -LASIX 20MG TABL20 MG PO; +LASIX 80MG TABL80 MG PO; +LYRICA 25MG CAP25 MG PO; +MACROBID 1100 MG/CAP PO; +MOTRIN 400400 MG/TAB PO; +PERCOCET 325 MG1 TA2 PO; +REGLAN 5MG T5 MG/TAB PO; +ROXICODONE 55 MG/TAB PO; +SEROQUEL50 MG PO; +TYLENOL 325MG325 MG PO; +TYLENOL 500MG500 MG PO; +VITAMIN C500 MG PO; +XARELTO20 MG PO; +ZOFRAN ODT4 MG PO
[2023-11-12] MEDS ORDERED: Morphine 10 MG/ML VIAL IM ONE (20:30)
[2023-11-12 22:20] VITALS: BP 124/75; PULSE 66; TEMP 97.9
== END 2023-11-12 22:20 | disposition home or self-care (01) ==
LOC: COL.ER 19:37
DX: M25.551 Pain in right hip (principal); Z96.641 Presence of right artificial hip joint
CPT/HCPCS: J2270